=== PATIENT | female | born 1990 | race Caucasian/White ===

== ENCOUNTER 2018-04-02 17:47 | Outpatient (REF) | payer BC, SELFPAY ==
--- NOTE | 2018-04-02 17:30 | PAPFT_PTH ---
PATIENT: TANA ANTONY LOC: [facility] U#:[id number] AGE/SX: 28/F ROOM: RE04/02/[address]: Judi Christopher : 1990 BED: DIS: 04/02/2018 SPEC #: [id number] RECD: 04/03/18 12:48 STATUS: GERARDO REQ #: [id number] OCTAVIO: 04/02/18 17:[address]: Kassie Gomez DEPT: [facility], [facility] Cytology RECD BY: Dina Meredith ENTERED: 04/03/18 12:49 SP TYPE: PAPFT OTHR DR: Sonya Richey Tissues: 1 - CX/ENDOCX FOR PAP SMEARS Procedures: PAP THIN PREP/[facility] Screening Comments:
== END 2018-04-02 18:07 ==
LOC: NCHCN 17:47
PROVIDERS: PCP Nurse Practitioner Family; Visit Provider Nurse Practitioner Family
DX: Z12.4 Encounter for screening for malignant neoplasm of cervix (principal)
CPT/HCPCS: 88142

== ENCOUNTER 2018-09-24 08:46 | Outpatient (REF) | payer OTHER, SELFPAY ==
[2018-09-24 22:07] LABS: Anion Gap 9.1 mmol/L (3-11); BUN 27 mg/dL (7-18); CO2 25.9 mmol/L (21.0-32.0); CREATININE 0.84 mg/dL (0.55-1.02); Calcium 8.8 mg/dL (8.5-10.1); Chloride 106 mmol/L (98-107); Glucose 95 mg/dL (70-100); Potassium 4.4 mmol/L (3.5-5.1); Sodium 141 mmol/L (136-145); TSH (W/Ref FT4) 0.39 uIU/mL (0.358-3.74)
[2018-09-24 22:22] LABS: HCT 40.9 % (36.0-46.0); HGB 13.4 g/dL (12.0-15.5); Mean Corp. HGB Concentration 32.8 g/dL (32.0-36.0); Mean Corpuscular Hemoglobin 30.7 pg (27.0-33.0); Mean Corpuscular Volume 93.8 fL (80-95); Platelet Count 234 x1000/uL (130-400); RBC 4.36 m/cumm (4.00-5.20); White Blood Cell Count 4.47 k/cumm (4.4-10.8)
== END 2018-09-24 09:06 ==
LOC: NCHCN 08:46
PROVIDERS: PCP Nurse Practitioner Family; Visit Provider Nurse Practitioner Family
DX: R53.83 Other fatigue (principal)
CPT/HCPCS: 80048; 85027; 84443